=== PATIENT | female | born 1995 | race Caucasian/White ===

== ENCOUNTER 2018-05-25 01:36 | Emergency (ER) | payer BC ==
[~2018-05-25] VITALS: Wt 66.8 kg
--- NOTE | 2018-05-25 04:06 | ERD ---
ER Documentation Chief Complaint Chief Complaint C/O CWP- INCREASES ON INSPIRATION X'S 4 HOURS HPI This is a 22-year-old female with complaints of chest wall pain. She says it is worse on inspiration. Is been on for 4 hours. She says is reproducible to the touch. Denies any fevers or chills. Denies any other current issues. Pain is mild to moderate intensity with no exacerbating alleviating factors. She has been under a significant amount of stress for the past few days secondary to tests at [email or web address] ROS All systems reviewed and are negative except as per history of present illness. Medications Home Meds No Active Prescriptions or Reported Meds Allergies Allergies: Coded Allergies: No Known Allergy (Unverified , 05/02/15) PMhx/Soc History of Surgery: Yes (LEFT FOOT SURGERY) Anesthesia Reaction: No Hx Neurological Disorder: No Hx Respiratory Disorders: No Hx Cardiac Disorders: No Hx Psychiatric Problems: No Hx Miscellaneous Medical Probl: Yes (ANEMIA) Hx Alcohol Use: No Hx Substance Use: No Hx Tobacco Use: No Physical Exam Vitals Vital Signs Date Temp Pulse Resp B/P (MAP) Pulse Ox O2 O2 Flow FiO2 Time Delivery Rate 05/25/18 98.1 105 18 133/63 98 01:50 (86) Physical Exam Const: No acute distress Head: Atraumatic Eyes: Normal Conjunctiva ENT: Normal External Ears, Nose and Mouth. Neck: Full range of motion. No meningismus. Resp: Clear to auscultation bilaterally Cardio: Regular rate and rhythm, no murmurs Abd: Soft, non tender, non distended. Normal bowel sounds Skin: No petechiae or rashes Back: No midline or flank tenderness Ext: No cyanosis, or edema Neur: Awake and alert Psych: Normal Mood and Affect Procedures/MDM EKG: Rate/Rhythm: [Normal Sinus Rhythm] QRS, ST, T-waves: [No changes consistent w/ acute ischemia] Impression: [No evidence of ischemia or arrhythmia] Chest X-ray 1V Interpreted by me: Soft Tissue: No acute abnormalities Bones: No acute abnormalities Mediastinum/Cardiac Silhouette/Lungs: [No acute abnormalities] Medical decision making: This is a 22-year-old female with chest wall pain. At this point she is clinically stable for outpatient management. No evidence of any cardiac abnormalities or cardiomegaly on x-ray. She is more than likely fagan ffering from some level anxiety and she said she has been under a lot of stress lately. At this point she is stable for outpatient management but I have stressed that she should follow-up with her primary care physician for possible outpatient cardiology follow-up. Patient has no risk factors for cardiac disease, no family history of cardiac disease. Departure Diagnosis: Primary Impression: Chest wall pain Condition: Stable LAW GARCIA May 25, 2018 04:06
[2018-05-25] MEDS ORDERED: NAPR-985 PO (04:07)
[2018-05-25 05:41] VITALS: BP 111/57; PULSE 83; RESP 16
== END 2018-05-25 05:42 | disposition home or self-care (01) ==
LOC: E/R 01:36
DX: R07.89 Other chest pain (principal)
CPT/HCPCS: 71045; 81025; 93005